=== PATIENT | female | born 1955 | race Caucasian/White ===

== ENCOUNTER 2023-10-26 15:21 | Outpatient (CLI) | payer MEDICARE, SELFPAY ==
--- NOTE | 2023-10-26 13:15 | DI.RAD_ITS ---
Exam(s) XR STANDING ALIGNMENT EXAM: XR STANDING ALIGNMENT CLINICAL HISTORY: RIGHT KNEE PAIN. TECHNIQUE: 2D digital imaging was performed. COMPARISON: No exams were available for comparison FINDINGS: 3 views Chondrocalcinosis in the medial and lateral compartments of both knees is evident and there is signif icant joint space narrowing of the medial compartment of the right knee with out significant narrowin g of the medial compartment of the left knee. Both lateral compartments exhibit preserved height. Hips unremarkable. Ankles unremarkable. No osseous lesions. IMPRESSION: Significant narrowing of the medial compartment of the right knee. Bilateral chondrocalcinosis. DATA REPOSITORY: RADIATION DOSE DELIVERED:
== END 2023-10-26 15:22 | disposition home or self-care (01) ==
LOC: DIORS 15:22
PROVIDERS: PCP Internal Medicine; Referring Provider Internal Medicine; Visit Provider Student in an Organized Health Care Education/Training Program
DX: M17.11 Unilateral primary osteoarthritis, right knee
CPT/HCPCS: 99203; 77073

== ENCOUNTER 2023-11-16 12:04 | Outpatient (CLI) | payer MEDICARE, SELFPAY ==
[2023-11-16 15:03] LABS: HCT 39.4 % (36.0-46.0); MCH 31.2 pg (27.0-33.0); MCV 95 fL (80-95); MPV 10.3 fL (8.0-11.0); Platelet Count 277 10^3/uL (130-400); RBC 4.17 10^6/uL (3.93-5.22); RDW-SD 44.9 fL; WBC 7.91 10^3/uL (4.4-10.8)
[2023-11-16 15:18] LABS: Anion Gap 7.7 mmol/L (3-11); BUN 22 mg/dL (7-18); CO2 28.3 mmol/L (21.0-32.0); CREATININE 0.9 mg/dL (0.55-1.02); Calcium 9.5 mg/dL (8.5-10.1); Chloride 106 mmol/L (98-107); Estimated GFR 69.64 (mL/min/1.73m2); Glucose 144 mg/dL (74-106); Potassium 4.5 mmol/L (3.5-5.1); Sodium 142 mmol/L (136-145)
== END 2023-11-16 12:05 | disposition home or self-care (01) ==
LOC: LBO 12:06
PROVIDERS: PCP Internal Medicine; Visit Provider Student in an Organized Health Care Education/Training Program
DX: M25.561 Pain in right knee (principal); M17.11 Unilateral primary osteoarthritis, right knee; Z01.818 Encounter for other preprocedural examination; Z01.812 Encounter for preprocedural laboratory examination
CPT/HCPCS: 36415; 80048; 85027

== ENCOUNTER 2023-12-02 09:57 | Day surgery (SDC) | payer MEDICARE, SELFPAY ==
[2023-12-02] VITALS (12 sets, daily range): BP systolic 127–204; BP diastolic 50–90; PULSE 72–90; RESP 10–18; TEMP 36.1–36.9; O2SAT 92–98; BMI 30.7
--- NOTE | 2023-12-02 07:30 | W.PM.DSUDISC ---
Date of service: 12/02/23 Time of Service: 07:30 Discharge Plan Disposition Patient Disposition: Home Condition: Good Discharge Details Reason For Visit: R TKR Attending Provider: Regulo Cabrera Primary Care Provider: Yokasta Allen Home Meds and New Rx's Prescriptions: New celecoxib 200 mg capsule 200 mg PO BID PRN (Reason: pain) Qty: 60 1RF aspirin 81 mg tablet,delayed release (DR/EC) 81 mg PO BID Qty: 60 0RF acetaminophen 500 mg tablet 1,000 mg PO Q8H PRN (Reason: pain) Qty: 90 3RF dexamethasone 4 mg tablet 4 mg PO DAILY Qty: 2 0RF Rx Instructions: Starting Post-Operative Day #1 (Day after surgery) Continued metformin 500 mg tablet 1,000 mg PO BID multivitamin Tablet 1 tab PO DAILY amitriptyline 25 mg tablet 25 mg PO QHS Rx Instructions: Pt reports taking up to 75mg QHS ascorbate calcium (vitamin C) 500 mg tablet 500 mg PO DAILY folic acid 1 mg tablet 1 mg PO DAILY cholecalciferol (vitamin D3) 25 mcg (1,000 unit) capsule 25 mcg PO DAILY Rx Instructions: with fish oil B12 5,000-100 mcg lozenge sublingual Patient Comments: 12/02/23 pt reports she has never taken thi docusate sodium [Colace] 100 mg capsule 100 mg PO BID Acidophilus Capsule 10 mg PO BID omega 1-jhe-sqk-fish oil [Fish Oil] 1,000 mg (120 mg-180 mg) capsule 1 cap PO DAILY Mounjaro 2.5 mg/0.5 mL pen injector 2.5 mg subcut QWEEK gabapentin 100 mg capsule 300 mg PO QID glimepiride 4 mg tablet 2 mg PO BID losartan 25 mg tablet 50 mg PO DAILY omeprazole 20 mg tablet,delayed release (DR/EC) 20 mg PO DAILY sertraline 100 mg tablet 100 mg PO DAILY sulfasalazine [Azulfidine] 500 mg tablet 1.5 g PO BID Rx Instructions: give with food (meal/snack) turmeric root extract 500 mg capsule 500 mg PO BID valacyclovir 1 gram tablet 1,000 mg PO Q8H Patient Comments: 12/02/23 pt not taking. used when she had shingles in April 2023. Changed oxycodone 10 mg tablet 10 mg PO Q4H PRNQty: 30 0RF Discharge Instructions Additional Instructions: Total Knee Discharge Instructions Activity: The most important activity is to walk and to work on gentle motion (both flexion and extension). You should try to take short walks a few times a day. It is important that when resting you work on keeping the knee straight. Avoid putting a pillow behind the knee as this will encourage flexion. Work on range of motion exercises as provided by Physical Therapy. - Start outpatient physical therapy within 2 weeks. - You should wear the ARON hose on both legs for 2 weeks. You may remove these at night. You may also use any compression sock in place of the ARON hose. - Utilize [employer] to review exercises, see videos on exercises and obtain basic information pertaining to your surgery and your recovery. Dressing: Remove the Sergio wrap by 2 days after your surgery and put on the ARON stocking given to you from the hospital. Keep the surgical dressing (underneath the SERGIO wrap) in place for at least one week. After the first week it may be removed and replaced with light gauze and tape or nothing. The wound and dressing may get wet after 3 days but avoid soaking the dressing or otherwise it will need to be changed. Many people prefer covering the dressing with cling wrap (saran wrap) to minimize it from getting soaked. If it gets wet, just pat dry. If it starts to peel off then it will need to be changed. Medications: - You should take Tylenol and anti-inflammatory Celebrex as your primary pain control medications. If the Celebrex is too expensive or not covered, please call the office for another alternative (Advil/Ibuprofen or Naproxen/Aleve) - You have been prescribed a stronger pain medication Oxycodone for breakthrough pain, take as needed as prescribed. - Youwill continue to take your Omeprazole to help reduce stomach acid and reflux. - You will continue your Gabapentin for nerve pain. - You will be taking Aspirin 81mg twice a day for DVT prevention unless instructed otherwise. - You have also been prescribed Decadron to take to control post-operative nausea and pain. You will start this tomorrow. - If you have constipation you should take Colace or Miralax (both [id number]). It takes most people 3-4 days to have a bowel movement. Follow-up: 2 weeks If you have any acute concerns or questions, please do not hesitate to contact the office at [phone]. You may contact Dr. Cabrera with any questions after hours through the hospital at [phone] or on his cell phone at [phone]. Stand Alone Forms: Anesthesia Discharge Inst., Abdelrahman.Nerve Block Instructions, Rachel Head ([facility]) Referrals: Regulo Cabrera MD [ [facility] STAFF PHYSICIAN] - 12/17/23 1:00 pm Equipment/Supplies: Walker Activity:: Activity as Tolerated Shower/Bathe:: 72 hours Diet:: As Tolerated Discharge Orders Discharge Orders: Discharge Order (Routine); Ordered 12/02/23 Ordered By: Regulo Cabrera
[2023-12-02] MEDS: Lactated Ringers 1,000 ML 80 ML IV (10:38)
--- NOTE | 2023-12-02 10:49 | ANES.PREOP_ITS ---
General Info Date of Service Date Performed: 12/02/23 Height: 4 ft 11 in Weight: 68.9 kg Body Mass Index (BMI): 30.7 Surgical Procedure: Operation Date: 12/02/23 12:25 Proposed Procedure Side Surgeon p Knee Total Arthroplasty, Cementless CR Right Regulo Cabrera MD Meds Allergies and Home Medications Allergies Allergy/AdvReac Type Severity Reaction Status Date / Time morphine Allergy Intermediate itchy Verified 12/02/23 10:34 Home Medication Medication Instructions Recorded Lactobacillus acidophilus 10 mg PO BID 07/02/22 (Acidophilus capsule) amitriptyline 25 mg tablet 25 mg PO QHS 07/02/22 ascorbate calcium (vitamin C) 500 500 mg PO DAILY 07/02/22 mg tablet cholecalciferol (vitamin D3) 25 25 mcg PO DAILY 07/02/22 mcg (1,000 unit) capsule cyanocobalamin (B12)-cobamamide surendra sublingual 07/02/22 5,000 mcg-100 mcg sublingual lozenge (B12) docusate sodium 100 mg capsule 100 mg PO BID 07/02/22 (Colace) folic acid 1 mg tablet 1 mg PO DAILY 07/02/22 metformin 500 mg tablet 1,000 mg PO BID 07/02/22 multivitamin 1 tab PO DAILY 07/02/22 gabapentin 100 mg capsule 300 mg PO QID 09/08/23 glimepiride 4 mg tablet 2 mg PO BID 09/08/23 losartan 25 mg tablet 50 mg PO DAILY 09/08/23 omeprazole 20 mg tablet,delayed 20 mg PO DAILY 09/08/23 release oxycodone 10 mg tablet 10 mg PO Q6H PRN 09/08/23 sertraline 100 mg tablet 100 mg PO DAILY 09/08/23 sulfasalazine 500 mg tablet 1.5 g PO BID 09/08/23 (Azulfidine) turmeric root extract 500 mg 500 mg PO BID 09/08/23 capsule valacyclovir 1 gram tablet 1,000 mg PO Q8H 09/08/23 omega 2-deo-ahr-fish oil 1,000 mg 1 cap PO DAILY 10/26/23 (120 mg-180 mg) capsule (Fish Oil) tirzepatide 2.5 mg/0.5 mL 2.5 mg subcut QWEEK 10/26/23 subcutaneous pen injector (Henrietta) Current Visit Medications: Current Medications Generic Name Dose Route Start Last Admin Trade Name Antonino PRN Reason Stop Dose Admin Acetaminophen 1,000 mg 12/02/23 06:00 Acetaminophen 500 Mg Tab PO 12/02/23 16:00 PREOP PAUL Acetaminophen 1,000 mg 12/02/23 07:28 Acetaminophen 500 Mg Tab PO 01/01/24 07:27 TID PRN PRN Analgesia Celecoxib 400 mg 12/02/23 06:00 Celecoxib 200 Mg Cap PO 12/02/23 16:00 PREOP PAUL Docusate Sodium 100 mg 12/02/23 07:28 Docusate Sodium 100 Mg Cap PO 01/01/24 07:27 BID PRN PRN Constipation Droperidol 0.625 mg 12/02/23 09:36 Droperidol 5 Mg/2 Ml Vial IVP 01/01/24 09:35 DIRECTED PRN Nausea Ephedrine Sulfate 0 mg 12/02/23 09:36 Ephedrine 25 Mg/5 Ml Syringe IVP 01/01/24 09:35 DIRECTED PRN Fentanyl 0 mcg 12/02/23 09:36 Fentanyl 100 Mcg/2 Ml Vial IVP 01/01/24 09:35 DIRECTED PRN Gabapentin 300 mg 12/02/23 06:00 Gabapentin 300 Mg Cap PO 12/02/23 16:00 PREOP [facility] Hydromorphone HCl 0 mg 12/02/23 09:36 Hydromorphone 2 Mg/Ml Syr IVP 01/01/24 09:35 DIRECTED PRN Tranexamic Acid 1,000 mg/ 60 mls @ 360 mls/hr 12/02/23 06:00 Sodium Chloride IVPB 12/02/23 16:00 PREOP [facility] Ringer's Solution 1,000 mls @ 80 mls/hr 12/02/23 06:00 12/02/23 10:38 IV 12/02/23 23:59 80 mls/hr INFUSION [facility] Administration Cefazolin Sodium/Dextrose 2 gm in 50 mls @ 100 mls/hr 12/02/23 06:00 Ancef Duplex IVPB 12/02/23 23:59 PREOP [facility] IV Miscellaneous Supplies 1 each 12/02/23 06:00 Iv Access IV 12/02/23 23:59 DIRECTED PAUL Naloxone HCl 0 mg 12/02/23 09:36 Naloxone 0.4 Mg/Ml Vial IVP 01/01/24 09:35 PRN PRN Ondansetron HCl 4 mg 12/02/23 07:28 Ondansetron 4 Mg/2 Ml Vial IVP 01/01/24 07:27 Q6H PRN PRN Nausea Oxycodone HCl 0 mg 12/02/23 07:28 Oxycodone 5 Mg Tab PO 01/01/24 07:27 Q3H PRN PRN Pain Polyethylene Glycol 17 gm 12/02/23 07:28 Polyethylene Glycol 3350 17 Gm Packet PO 01/01/24 07:27 BID PRN PRN Constipation Sodium Chloride 0 ml 12/02/23 06:00 Normal Saline Flush 10 Ml Syr IV 12/02/23 23:59 PRN PRN Sodium Chloride 0 ml 12/02/23 06:00 Normal Saline 10 Ml Vial IJ 12/02/23 23:59 DIRECTED PRN Sterile Water 0 ml 12/02/23 06:00 Water,Injection,Sterile 10 Ml Vial IJ 12/02/23 23:59 DIRECTED PRN PFSH Active Problems Active Problems: Problem Status Onset Code Osteoarthritis of right knee M17.11 Spinal stenosis of lumbar region M48.061 Sleep apnea G47.30 Obesity E66.9 Pain, foot M79.673 Nail dystrophy L60.3 Retinopathy H35.00 Type 2 diabetes mellitus without complications E11.9 Ulcerative colitis K51.90 Dyslipidemia E78.5 Hypertension I10 Fibromyalgia M79.7 Personal history of calcium pyrophosphate deposition disease (CPPD) Z87.39 Medical History Medical History Claustrophobia Chronic pain syndrome Medical History Comments:: 12/02/23: pt reports she felt nauseous/vomited post anesthesia a few years ago 12/02/23: pt has limited neck movement due to laminectomy in 08/03. BP repeat 192/88 at 10:40am Surgical History Surgical History Hx of tonsillectomy History of tubal ligation H/O laminectomy 02/2005 Status post excision of lipoma History of cataract surgery History of carpal tunnel release History of cystoscopy Tobacco Smoking/Tobacco Use Status: Never Alcohol Alcohol Intake: current Alcohol intake frequency: holidays/special occasions only Substance Use Substance use: Never Substance use type: does not use Details: 12/02/23: Pt reports she took THC drops one month ago for her fibromyalgia, Vital Signs and Lab Results Vital Signs Most Recent Vital Signs in EMR: Most Recent Vital Signs Temp Pulse Resp BP Pulse Ox 36.1 C L 90 18 204/75 H 98 12/02/23 10:03 12/02/23 10:03 12/02/23 10:03 12/02/23 10:03 12/02/23 10:03 Point of Care Results Point of Care Results: Finger Stick Blood Glucose 133 12/02/23 10:16 Lab Results Blood Type / Crossmatch: No Data to Display Complete Blood Count: White Blood Count 7.91 10^3/uL (4.4-10.8) 11/16/23 14:52 Red Blood Count 4.17 10^6/uL (3.93-5.22) 11/16/23 14:52 Hemoglobin 13.0 g/dL (11.2-15.7) 11/16/23 14:52 Hematocrit 39.4 % (36.0-46.0) 11/16/23 14:52 Platelet Count 277 10^3/uL (130-400) 11/16/23 14:52 Complete Metabolic Panel: Sodium 142 mmol/L (136-145) 11/16/23 14:52 Potassium 4.5 mmol/L (3.5-5.1) 11/16/23 14:52 Chloride 106 mmol/L (98-107) 11/16/23 14:52 Carbon Dioxide 28.3 mmol/L (21.0-32.0) 11/16/23 14:52 BUN 22 mg/dL (7-18) H 11/16/23 14:52 Creatinine 0.9 mg/dL (0.55-1.02) 11/16/23 14:52 Est GFR (CKD-EPI 2020) 69.64 (mL/min/1.73m2) 11/16/23 14:52 Calcium 9.5 mg/dL (8.5-10.1) 11/16/23 14:52 Glucose 144 mg/dL (74-106) H 11/16/23 14:52 Liver Function Panel: No Data to Display Coagulation Panel: No Data to Display Cardiac Panel: No Data to Display Arterial Blood Gas: No Data to Display Venous Blood Gas: No Data to Display Pancreas Panel: No Data to Display Thyroid Panel: No Data to Display Infectious Disease: No Data to Display Blood Cultures: No Data to Display Toxicology Panel: No Data to Display Anesthesia Assessment and Plan Anesthesia History Personal History: PONV Family History: No Family History of Anesthesia Complications Exercise Tolerance Exercise Tolerance: Metabolic Equivalents>4 Pertinent Negatives Pertinent Negatives: No Symptoms of GERD (Treated with RX) Cardiac & Pulmonary Exam Cardiac Exam: Normal S1/S2 Heart Sounds Pulmonary Exam: Seasonal Allergies Implantable Cardiac Device Does patient have a Pacemaker or an ICD?: No Airway Exam Known Difficult Airway: No Mallampati Class: 3 Mouth Opening: Narrow (< 3cm) Thyromental Distance: Less than 3 cm Neck Range of Motion: Limited ROM (neck fusion) Neck Circumference: Thick Teeth Condition: Normal Dentition ASA Classification ASA Score: ASA 3 Emergency Case?: No NPO Status NPO Status: NPO Clears >2 hours, Solids >8 hours Anesthesia Plan Resuscitation Status: Full Code Anesthesia Technique: Spinal Anesthesia Airway Planned: Natural Airway Monitors Used: Standard Monitors
[2023-12-02] MEDS: Acetaminophen 500 MG TAB 1000 MG PO (10:50)
[2023-12-02] MEDS: Gabapentin 300 MG CAP PO (10:50)
[2023-12-02] MEDS: Celecoxib 200 MG CAP 400 MG PO (10:51)
--- NOTE | 2023-12-02 11:25 | W.ANESNERVE ---
Nerve Block Single Injection Procedure Date and Time Date Performed: 12/02/23 Procedure Start: 11:15 Location Where Procedure Performed Procedure Location: Day Surgery Unit Reason Performed: Postoperative Analgesia Requesting Provider: Regulo Cabrera Timeout Performed Timeout Performed: Yes Monitoring Used ECG, Blood Pressure, SpO2, ETCO2 and See EMR for corresponding vital signs Sterility Sterility: Hand Hygiene, Surgical Cap, Surgical Mask, Sterile Gloves, Eye Protection and Chlorhexidine Sedation Given During Procedure Sedation Given (Indicate Dose Given): Versed IV Dose:: 3mg IVP Patient Mental Status Patient Mental Status: Sedate with meaningful communication Nerve Block 1st Nerve Block: Laterality: Right Block Type: Adductor Canal Ultrasound Image Saved?: Yes Needle / Catheter Used: 100mm SonoPlex II Local Anesthetic Bolus (Indicate Dose Given): Lidocaine used for local infiltration of skin, Injected in 3-5ml increments after negative blood aspiration and Ropivacaine 0.5% Dose:: 0.5%/20cc (100mg) Additives (Indicate Dose Given): Epinephrine to make 1:200,000 (5mcg/ml) Dose:: 100mcg/20cc (1:200,000) and Decadron Dose:: PF 10mg Ultrasound: Sterile probe cover and gel used Nerve Stimulator: Not Used Paresthesia: None Procedure Tolerated: No Complications and Patient tolerated well Procedure Outcome: Successful Performed By: James Gasca
[2023-12-02] MEDS: ceFAZolin 2 GM/50 ML BAG IVPB (11:37)
[2023-12-02] MEDS: fentaNYL 100 MCG/2 ML VIAL IVP ×2 (13:57→14:06)
[2023-12-02] MEDS: HYDROmorphone 2 MG/ML SYR IVP (14:15)
[2023-12-02] MEDS: Normal Saline 10 ML VIAL IJ (14:15)
--- NOTE | 2023-12-02 14:15 | ROE_ITS ---
Date of service: 12/02/23 Time of Service: 11:45 Operative Note Operative Note DATE OF PROCEDURE: 12/02/23 PRE-OP DIAGNOSIS: Right Knee Osteoarthritis POST-OP DIAGNOSIS: same PROCEDURE: Right Total Knee Replacement SURGEON: Regulo Cabrera LEASE ADMINISTRATOR: Evangelina Flowers ANESTHESIA TYPE: General LMA/ETT Refer to Anesthesia Record ESTIMATED BLOOD LOSS: 200 PATHOLOGY: none sent TOURNIQUET TIME: 0 COMPLICATIONS: None Patient was transported to: PACU Patient's condition: stable Implants: 1. Depuy Attune Cementless Cruciate Retaining Femoral Component, Size 5 2. Depuy Attune Cementless Fixed Bearing Tibial Component, Size 4 3. Depuy Attune 5x5 CR/FB Poly 4. Depuy Attune Patellar Component, Size 35 Indications: I have seen Lulu in clinic for symptoms of knee arthritis, confirmed with radiographic findings. She has exhausted nonoperative methods and was having significant limitations in daily function and desired better function and less pain. I discussed the technical details of a knee replacement. I explained the risks of the procedure to include, but not limited to, bleeding, infection, pain, stiffness, fracture, damage to nerves and vessels, damage to muscles and tendons, loosening, need for repeat procedure, blood clot and cardiopulmonary demise. Despite these risks, Lulu elected to proceed. Findings: There was significant signs of arthritis throughout the knee. Procedure Description: Lulu was greeted in the preoperative holding area where the correct side was identified and marked. The consent was reviewed with the patient and signed. The history and physical was updated. All questions were answered. Preoperative medications were administered: Acetaminophen 1000mg, Celebrex 400mg, and Gabapentin 300mg. An adductor canal block was then administered by the anesthesia team in the DSU. Lulu was taken back to the operating room. A spinal anesthestic was then attempted but unsuccessful and thus she was converted to a general anesthetic. The patient was placed into the supine position on the operating room table. A nonsterile tourniquet was placed high onto the leg but only used for cementing. Posts were placed for positioning during the procedure. All bony prominences were well padded. Prophylactic antibiotics in the form of Cefazolin were administered. 1g of Tranxemic Acid was given intravenously within 30 minutes of incision. The right leg was then prepped with Chloraprep and draped in a standard fashion with impervious stockinette. A second prep with Chloraprep was performed prior to application of Iodine impregnated skin protection. A timeout to confirm correct identity, side and site, procedure, allergies, anesthesia, and medical concerns was performed. With the knee in some flexion, a midline incision was made overlying the knee. Full thickness skin flaps were raised once the extensor mechanism was encountered. These were raised medially and laterally. Any bleeding was contro lled with electrocautery. Once the extensor mechanism was fully exposed, a medial parapatellar arthrotomy was performed in a flexed position. All bleeding from the arthrotomy and the geniculate arteries was coagulated. A medial subperiosteal peel was performed with electrocautery to the midcoronal plane. The fat pad was removed while keeping the patellar tendon protected. The anterior distal femur synovium was removed for later visualization. The ACL and PCL were resected and the anterior horn of the lateral meniscus was transected. The knee was then flexed with the patella everted. The patella was relatively quite wide with osteophytes. Using a step drill, and based on preoperative templating, the femoral canal was entered. This was done with a step drill without any difficulty. The intramedullary distal femoral cut guide was inserted, set to a 5 degree valgus cut and 9mm cut thickness. There was some hypoplasia of the lateral femoral condyle and any remnant cartilage of the medial femoral condyle was removed for appropriate thickness. The distal femoral cut guide was then held in position and pinned. With the soft tissues protected, the distal cut was performed. This was passed over a few times to ensure a planar cut. I then turned attention to the tibia. The extramedullary guide was placed onto the leg. The distal aspect was slid medial to adjust for position of center of ankle and stay in line with shaft of the tibia. Approximately 3-5 degrees of posterior slope was kept in the proximal cutting guide. The center of the guide was aligned with the PCL. The stylus was used to assess cut thickness. The medial side, most involved side, was set for a 6mm cut, corresponding to 9mm laterally. This was then held in position and pinned into place with 2 additional pins and a cross pin for stability. The medial and lateral collateral ligaments were protected and the cut was performed. With this completed, it was assessed and noted to be of appr opriate dimensions. The guide was removed. A spacer block was inserted and the knee was brought into extension. The 5mm spacer block provided full extension, without hyperextension and with stability of both the medial and lateral collateral ligaments was assessed. The pins from the femur and the tibia were then removed. The distal femur was then sized. The anterior stylus was placed onto the lateral ridge of the anterior femur. This indicated a size 5 femur. The external rotation of the guide was adjusted to 3 degrees to match the epicondylar axis, perpendicular to [place]?s line. The 4-in-1 cutting guide was the placed. The posterior medial femur cut was evaluated and appeared of good thickness. The spacer block was inserted underneath the cutting guide and stability was confirmed in 90 degrees of flexion. An dale wing was used to confirm appropriate position of the anterior cut to avoid notching. This cutting guide was ensured to be flush on the cut surface and then pinned into place with headed pins. While protecting the soft tissues, quad tendon, and collateral ligaments, the anterior and posterior cuts were performed with a saw. The central two pins were removed and the posterior and anterior chamfers were cut next. The notch-cutting guide was placed. This was pinned to lateralize the femoral component as much as possible while keeping it flush on the cut surface. This was then pinned into position. A reciprocating saw was used to make the notch cut. A rasp smoothed the cut surfaces. The medial and lateral menisci were removed. A trial femoral component was then inserted, impacted down to the cut surfaces, and the lug holes were drilled. A provisional trial tibial component was placed and the knee was brought through range of motion. There was noted to be excellent extension and flexion. There was no significant instability. The patella was tracking without thumbs. A size 5mm polyethylene component provided the best range of motion and stability with less than 2mm gapping with medial and lateral stress and full extension without significant hyperextension. The tibial cut surface was fully exposed. The tibia was then sized as a 4. The tibia had been previously marked during trialing to correspond to the center of the tibial component to help with rotation. The trial was aligned to this evangelina, approximately rotated to the medial 1/3rd of the tibial tubercle. The trial was pinned into place. The tibia was prepared with a reamer and a keel punch and lug holes. The knee was then brought into extension and the patella was measured as 25mm. Using the patellar clamp and cut guide, this was resected to a flat surface with at least 13mm of thickness remaining. The size 35 patella fit the best. This was oriented and then clamped into position. The lugs were drilled. The trial components were removed. The final components were opened on the back table. The periosteal and capsular tissues, especially posteriorly, around the knee were then systematically injected with a periarticular cocktail consisting of 246mg of Ropivacaine, 0.5mg of Epinephrine, 0.08mg of Clonidine, and 30mg of Ketorolac, diluted to 100cc. On the back table, with the implants opened, the cement was mixed. One batch of high viscosity cement was prepared with vacuum assistance. After the cement was ready a small amount was placed on the cut surface of the patella and the patellar button was clamped into position and held. While the cement was hardening, the cementless knee components were placed. Starting with the tibial component, the tibia was subluxed anteriorly and the lug holes of the component were lined up. The tibia was then impacted with an impactor and mallet until the tibial component was in contact with the tibia. The final polyethylene component was inserted. Then, the femoral component was inserted. The lug holes were aligned and the component was impacted into position. The knee was irrigated with Irrisept Chlorhexadine solution. This was allowed to sit in the knee for 3 minutes and then it was irrigated out with saline. After the cement had finally cured, approximately 15min, the clamp was removed from the patella and the knee was taken through range of motion. The patella was tracking with a no-thumbs technique. The capsule was then reapproximated with a No. 1 Vicryl at multiple locations. The capsule was finally closed with a No. 2 Stratafix, barbed suture. The second dosing of 1g TXA was started. Deep tissues were then reapproximated with 0 Vicryl and 2-0 Vicryl. The skin was closed with a running 3-0 Monocryl in a subcuticular fashion. This was reinforced with skin glue. A Mepilex silver dressing was applied along with a gyxq-br-sowpr NIDHI wrap. A CryoCuff was applied. Lulu was transferred to the hospital bed without difficulty an suffering no apparent complication. She has a good prognosis although with concerns about pain control given her baseline usage of Oxycodone 10mg. Physical therapy will start today and without restrictions, weight-bearing as tolerated. Aspirin 81mg BID will be used for DVT prophylaxis.
--- NOTE | 2023-12-02 15:19 | W.ANESPOSTOP ---
Postoperative Evaluation Date, Time and Location Date Performed: 12/02/23 Time Performed: 15:19 Patient Location: Day Surgery Unit Vital Signs Most Recent Imported Vital Signs: Most Recent Vital Signs Temp Pulse Resp BP Pulse Ox 36.2 C L 77 18 138/62 94 12/02/23 15:00 12/02/23 15:00 12/02/23 15:00 12/02/23 15:00 12/02/23 15:00 Pain Score Most Recent Pain Score: Most Recent Pain Score Pain Level 6 12/02/23 15:00 Assessment Mental Status: Awake (Alert & Oriented to Patient Baseline) Airway and Respiratory Function: Patent airway with normal (patient baseline) respiratory exam Cardiovascular Function: Hemodynamically Stable Hydration Status: Adequately Hydrated Nausea & Vomiting: No Nausea or Vomiting Pain: Pain is tolerable per patient Peripheral Nerve Block: Regional nerve block not resolved at time of post operative discharge
--- NOTE | 2023-12-02 15:46 | IN_ITS ---
PT Notes Visit Reasons: R TKR Physical Therapy Day Surgery Initial Evaluation Date: 12/02/2023 Referring Doctor: GABRIEL Javed PT Orders: PT CONSULT: S/P Ortho Surgery Precautions: WBAT on the R LE with AD. Patient Profile/Admitting Diagnosis: Patient is a 68-year-old female patient with degenerative joint disease of the R knee and is S/P R total knee arthroplasty on postoperative day 0. PMHX: Medical History (Updated 10/26/23 @ 13:40 by GABRIEL Javed) Claustrophobia Chronic pain syndrome Surgical History (Updated 09/08/23 @ 09:09 by Yelena Pichardo RN) Hx of tonsillectomy History of tubal ligation H/O laminectomy 02/2005 Status post excision of lipoma History of cataract surgery History of carpal tunnel release History of cystoscopy Social History/Home Situation: Lives with in a private home, has 15 steps to the second floor of the house where the bedroom is. Independent with all aspects of ADLs prior to surgery although has had increasing difficulty with walking due to arthritic progression. Equipment Owned/DME: [facility] Subjective: Reported 6/10 that went down to 5/10 during walking. Denied headache, chest pain, and lightheadedness throughout session Objective: General Observation: Resting on bedside chair with leg up, appearing uncomfortable. Rodrick present throughout evaluation. Mental Status: A and O x 4 Pain: As above ROM: Right Lower Extremity: Hip flexion WFL. Hip abduction WFL. Knee flexion 30 degrees to 90 degrees with discomfort at end of range. Knee extension -30 degrees. Ankle dorsiflexion WFL. Ankle plantarflexion WFL. Left Lower Extremity: Hip flexion WFL. Hip abduction WFL. Knee flexion WFL. A nkle dorsiflexion WFL. Ankle plantarflexion WFL. Strength: Right Lower Extremity: Hip flexors 4-/5. Hip abductors 4-/5. Knee flexors 3-/5. Knee extensors 3-/5. Ankle dorsiflexors 4-/5. Ankle plantarflexors 4-/5. Left Lower Extremity:Hip flexors 4/5. Hip abductors 4/5. Knee flexors 5/5. Knee extensors 5/5. Ankle dorsiflexors 4/5. Ankle plantarflexors 545. Sensation: Intact as to pain and light pressure in B LE Bed Mobility/Transfers: Minimal cueing provided for use of B hands as needed for support, movement sequence, AD management, and posture to reduce fall risk and minimize pain report Sit to stand contact guard assist with FWW Stand to sit stand by assist with FWW Bed to chair stand by assist with FWW follow-up thank you thank Gait: Facilitated safe and correct performance of level surface ambulation using front-wheeled walker with step-to gait pattern needing stand by assist and minimal verbal cueing for AD management, decreased out-toeing on the R (patient states that her gait has been like that), and posture to reduce fall risk and minimize pain report. Pain report decreased to 4-5/10 with activity. Stairs: Guided patient with safe and correct negotiation of 6 x 4-inch steps and 4 x - inch steps while holding onto B rails with step-to gait pattern with minimal verbal cueing provided for increased knee flexion on the right during each ascent, hand placement, movement sequence, and posture to reduce fall risk and minimize pain report. Balance: Static Sitting: Normal Dynamic Sitting: Normal Static Standing: Fair Dynamic Standing: Fair Special Tests: Mobility Limitations Standardized Measure [facility] AM-P[facility] 6 clicks Basic Mobility Inpatient Short Form: Raw Score: 22 CMS Score: 21% deficit Informed Consent/Education: Patient was instructed in purpose of PT consult. Packet containing TKA exercise protocol has been given to patient. Education and training on initial set of exercises that can be done at home have been completed with patient. Trained patient with correct performance of exercises below to maximize motor control, joint flexibility, soft tissue extensibility of the R knee musculature: Access Code: [email or web address] URL: [email or web address] Date: 11/12/2023 Prepared by: Kelly Majano Exercises - Supine Quad Set - 1 x daily - 7 x weekly - 1 sets - 10 reps - 5 hold - Supine Heel Slide - 1 x daily - 7 x weekly - 1 sets - 10 reps - 5 hold - Supine Ankle Pumps - 1 x daily - 7 x weekly - 1 sets - 10 reps - 5 hold - Small Range Straight Leg Raise - 1 x daily - 7 x weekly - 1 sets - 10 reps - 5 hold - Seated March - 1 x daily - 7 x weekly - 1 sets - 10 reps - 5 hold Assessment: Patient requires the use of a youth-sized front-wheeled walker for mobility ADL performance to maximize independence and reduce fall risk. Patient presents with clinical signs and symptoms consistent with current/admitting diagnoses that have resulted to mobility limitations, gait instability, generalized weakness, and impairment of motor control as demonstrated by the following impairment level findings: 1. Decreased strength to R knee major muscle groups 2. Impaired standing balance 3. Limitation of joint range of motion in R knee Impairments are contributing to the following functional limitations: 1. Inability to safely ambulate without assistive device 2. Increase completion time for mobility ADL performance 3. Increased fall risk Patient is assessed as a 14994 moderate complexity based on the following: History: 68-year-old female with impairment level findings, functional limitations, and past medical history as indicated above Examination: Demonstrable impairment in strength, balance, and mobility level with underlying impairments and functional limitations as documented above Presentation: Evolving Decision Makin moderate complexity Goals: N/A. PT evaluation and 1-2 treatment sessions only for functional mobility training using recommended AD and for HEP instruction. Plan of Care/Treatment Plan: N/A. PT evaluation and 1-2 treatment session only for functional mobility training using recommended AD and for HEP instruction. DISCHARGE RECOMMENDATIONS: Home when medically cleared by orthopedic surgeon. Recommend outpatient PT services in order to optimize functional mobility outcomes and facilitate return to independent community ambulation without an assistive device. TREATMENT CODE/TIME: 9716 2 x 20 minutes for 1 unit, 9753 0 x 21 minutes for 1 unit (15:46-16:27) Thank you for the opportunity to participate in the care of this patient. Please sign an return this page within 30 days if you agree with the above POC. Thank you! Physician Signature Date [facility] Thank you for the opportunity to participate in the care of this patient. Kelly Majano PT, DPT, CLT [facility] [place], [place]
== END 2023-12-02 16:54 | disposition home or self-care (01) ==
LOC: SUR 09:57
PROVIDERS: PCP Internal Medicine; Visit Provider Student in an Organized Health Care Education/Training Program
PROC: (CPT 27447; principal; 2023-12-02 12:15)
DX: M17.11 Unilateral primary osteoarthritis, right knee (principal); E11.9 Type 2 diabetes mellitus without complications; I10 Essential (primary) hypertension; E78.5 Hyperlipidemia, unspecified
CPT/HCPCS: 27447; C1776; 97162; 97530; J0171; J0690; J1100; J1170; J2001; J2250; J2401; J2405; J2704; J3010

== ENCOUNTER 2023-12-17 14:52 | Outpatient (CLI) | payer MEDICARE, SELFPAY ==
--- NOTE | 2023-12-17 13:00 | DI.RAD_ITS ---
Exam(s) XR KNEE RT 1V EXAM: XR KNEE RT 1V INDICATION: f/u R TKA. COMPARISON: CR XR STANDING ALIGNMENT from 10/26/2023 CR XR STANDING ALIGNMENT from 12/17/2023 TECHNIQUE: 2D digital imaging was performed. Lateral view FINDINGS: A right total knee prosthesis has been placed since the prior exam. There are no abnormal surroundin g bony lucencies. The alignment appears satisfactory. DATA REPOSITORY: RADIATION DOSE DELIVERED:
--- NOTE | 2023-12-17 13:00 | DI.RAD_ITS ---
Exam(s) XR STANDING ALIGNMENT EXAM: XR STANDING ALIGNMENT CLINICAL HISTORY: f/u R TKA. TECHNIQUE: 2D digital imaging was performed. Standing AP views were performed from the pelvis throu gh the ankles. COMPARISON: CR XR KNEE COMPLETE MIN 4V RT from 08/17/2023 CR XR STANDING ALIGNMENT from 10/26/2023 FINDINGS: BONES: No acute fracture is present. No bony destructive lesion is seen. Leg length discrepancy: The left femoral head projects proximally 5 millimeter superior to the righ t. JOINTS: Knees: Unremarkable right total knee prosthesis. Left knee joint spaces are maintained. C hondrocalcinosis present. Ankles: [id number] degenerative changes. The hip joints spaces are maintained. There is acetabular spurring. SOFT TISSUE: Vascular calcifications and proximal hamstring muscle tendon calcification. IMPRESSION: Right total knee prosthesis. Mild leg length discrepancy. DATA REPOSITORY: RADIATION DOSE DELIVERED:
== END 2023-12-17 14:53 | disposition home or self-care (01) ==
LOC: DIORS 14:52
PROVIDERS: PCP Internal Medicine; Referring Provider Internal Medicine; Visit Provider Student in an Organized Health Care Education/Training Program
DX: Z96.651 Presence of right artificial knee joint (principal); Z47.1 Aftercare following joint replacement surgery
CPT/HCPCS: 73560; 77073

== ENCOUNTER → 2024-01-14 13:24 | Outpatient (BNVA) | payer MEDICARE, SELFPAY | PROVIDERS: PCP Internal Medicine; Referring Provider Internal Medicine; Visit Provider Student in an Organized Health Care Education/Training Program | DX: Z47.1 Aftercare following joint replacement surgery (principal); Z96.651 Presence of right artificial knee joint ==

== ENCOUNTER → 2024-02-25 14:09 | Outpatient (BNVA) | payer MEDICARE, SELFPAY | PROVIDERS: PCP Internal Medicine; Referring Provider Internal Medicine; Visit Provider Student in an Organized Health Care Education/Training Program | DX: Z47.1 Aftercare following joint replacement surgery (principal); T84.82XD Fibrosis due to internal orthopedic prosthetic devices, implants and grafts, subsequent encounter; Z96.651 Presence of right artificial knee joint ==

== ENCOUNTER 2024-03-02 12:10 | Day surgery (SDC) | payer MEDICARE, SELFPAY ==
--- NOTE | 2024-03-02 12:28 | PDOC.DSDIS_ITS ---
Date of service: 03/02/24 Time of Service: 12:29 Discharge Plan Disposition Patient Disposition: Home Condition: Good Discharge Details Reason For Visit: Edgardo Salinas TKR Attending Provider: Regulo Cabrera Primary Care Provider: Yokasta Allen Home Meds and New Rx's Prescriptions: New oxycodone 15 mg tablet 15 mg PO Q4H PRNQty: 30 0RF Continued metformin 500 mg tablet 1,000 mg PO BID multivitamin Tablet 1 tab PO DAILY amitriptyline 25 mg tablet 25 mg PO QHS Rx Instructions: Pt reports taking up to 75mg QHS ascorbate calcium (vitamin C) 500 mg tablet 500 mg PO DAILY folic acid 1 mg tablet 1 mg PO DAILY cholecalciferol (vitamin D3) 25 mcg (1,000 unit) capsule 25 mcg PO DAILY Rx Instructions: with fish oil B12 5,000-100 mcg lozenge sublingual Patient Comments: 12/02/23 pt reports she has never taken thi docusate sodium [Colace] 100 mg capsule 100 mg PO BID Acidophilus Capsule 10 mg PO BID omega 1-piw-xfv-fish oil [Fish Oil] 1,000 mg (120 mg-180 mg) capsule 1 cap PO DAILY Mounjaro 2.5 mg/0.5 mL pen injector 2.5 mg subcut QWEEK duloxetine 20 mg capsule,delayed release(DR/EC) 20 mg PO BID gabapentin 100 mg capsule 300 mg PO QID glimepiride 4 mg tablet 2 mg PO BID losartan 25 mg tablet 50 mg PO DAILY omeprazole 20 mg tablet,delayed release (DR/EC) 20 mg PO DAILY sulfasalazine [Azulfidine] 500 mg tablet 1.5 g PO BID Rx Instructions: give with food (meal/snack) turmeric root extract 500 mg capsule 500 mg PO BID valacyclovir 1 gram tablet 1,000 mg PO Q8H Patient Comments: 12/02/23 pt not taking. used when she had shingles in April 2023. celecoxib 200 mg capsule 200 mg PO BID PRN (Reason: pain) Qty: 60 1RF acetaminophen 500 mg tablet 1,000 mg PO Q8H PRN (Reason: pain) Qty: 90 3RF Discontinued oxycodone 10 mg tablet 10 mg PO Q4H MDD 6 tabs PRN (Reason: severe pain) Qty: 30 0RF Discharge Instructions Additional Instructions: Knee Manipulation Discharge Instructions Activity: You should begin moving as soon as possible. You may work on flexion but also equally maintain extension. You may bear weight as tolerated, using crutches only for support/comfort. You should apply ice to help with swelling and elevate when possible (especially in the first few days). Dressings: The knee dressing may come down after 48 hours. You may shower and get the wound wet at that time. You should keep the wounds covered with a bandaid until follow-up. Medications: - Rarely does this require any stronger pain medications however I will call you in Oxycodone 15mg to help treat pain. - Recommend to take up to 1000mg of Acetaminophen (Tylenol) and 200mg of Celecoxib every 12 hours as needed. These larger strength tablets were called in but you also may use [id number]. Follow-up: 7-10 days Referrals: Regulo Cabrera MD [ [facility] STAFF PHYSICIAN] - Equipment/Supplies: Partial Weight Bearing Crutches Activity:: Activity as Tolerated Shower/Bathe:: 48 hours Diet:: As Tolerated Discharge Orders Discharge Orders: Discharge Order (Routine); Ordered 03/02/24 Ordered By: Manuel Flowers DS: Diagnosis Discharge Diagnosis (1) Arthrofibrosis of total knee arthroplasty: Status: Acute
[2024-03-02 12:41] VITALS: BP 140/73; PULSE 88; RESP 16; TEMP 36.4; O2SAT 95
[2024-03-02] MEDS: Lactated Ringers 1,000 ML 80 ML IV (13:15)
[2024-03-02] MEDS: Celecoxib 200 MG CAP 400 MG PO (13:15)
[2024-03-02] MEDS: Gabapentin 300 MG CAP PO (13:15)
--- NOTE | 2024-03-02 13:30 | W.ANESPRE ---
General Info Date of Service Date Performed: 03/02/24 Height: 4 ft 11 in Weight: 65.771 kg Body Mass Index (BMI): 29.2 Surgical Procedure: Operation Date: 03/02/24 15:25 Proposed Procedure Side Surgeon p Knee Manipulation of Knee Right Regulo Cabrera MD Meds Allergies and Home Medications Allergies Allergy/AdvReac Type Severity Reaction Status Date / Time morphine Allergy Intermediate itchy Verified 03/02/24 12:46 Home Medication Medication Instructions Recorded Lactobacillus acidophilus 10 mg PO BID 07/02/22 (Acidophilus capsule) amitriptyline 25 mg tablet 25 mg PO QHS 07/02/22 ascorbate calcium (vitamin C) 500 500 mg PO DAILY 07/02/22 mg tablet cholecalciferol (vitamin D3) 25 25 mcg PO DAILY 07/02/22 mcg (1,000 unit) capsule cyanocobalamin (B12)-cobamamide surendra sublingual 07/02/22 5,000 mcg-100 mcg sublingual lozenge (B12) docusate sodium 100 mg capsule 100 mg PO BID 07/02/22 (Colace) folic acid 1 mg tablet 1 mg PO DAILY 07/02/22 metformin 500 mg tablet 1,000 mg PO BID 07/02/22 multivitamin 1 tab PO DAILY 07/02/22 gabapentin 100 mg capsule 300 mg PO QID 09/08/23 glimepiride 4 mg tablet 2 mg PO BID 09/08/23 losartan 25 mg tablet 50 mg PO DAILY 09/08/23 omeprazole 20 mg tablet,delayed 20 mg PO DAILY 09/08/23 release sulfasalazine 500 mg tablet 1.5 g PO BID 09/08/23 (Azulfidine) turmeric root extract 500 mg 500 mg PO BID 09/08/23 capsule valacyclovir 1 gram tablet 1,000 mg PO Q8H 09/08/23 omega 3-jtr-uzi-fish oil 1,000 mg 1 cap PO DAILY 10/26/23 (120 mg-180 mg) capsule (Fish Oil) tirzepatide 2.5 mg/0.5 mL 2.5 mg subcut QWEEK 10/26/23 subcutaneous pen injector (Mounjaro) acetaminophen 500 mg tablet 1,000 mg (2 x 500 mg) PO Q8H PRN 12/02/23 pain #90 tabs celecoxib 200 mg capsule 200 mg PO BID PRN pain #60 caps 12/02/23 oxycodone 10 mg tablet 10 mg PO Q4H PRN severe pain #30 12/10/23 tabs duloxetine 20 mg capsule,delayed 20 mg PO BID 02/25/24 release Current Visit Medications: Current Medications Generic Name Dose Route Start Last Admin Trade Name Antonino PRN Reason Stop Dose Admin Acetaminophen 650 mg 03/02/24 12:26 Acetaminophen 325 Mg Tab PO 04/01/24 12:25 Q4H PRN PRN Celecoxib 400 mg 03/02/24 06:00 03/02/24 13:15 Celecoxib 200 Mg Cap PO 03/02/24 23:59 400 mg PREOP PAUL Administration Gabapentin 300 mg 03/02/24 06:00 03/02/24 13:15 Gabapentin 300 Mg Cap PO 03/02/24 23:59 300 mg PREOP PAUL Administration Ringer's Solution 1,000 mls @ 80 mls/hr 03/02/24 06:00 03/02/24 13:15 IV 03/02/24 23:59 80 mls/hr INFUSION PAUL Administration IV Miscellaneous Supplies 1 each 03/02/24 06:00 Iv Access IV 03/02/24 23:59 DIRECTED PAUL Sodium Chloride 0 ml 03/02/24 06:00 Normal Saline Flush 10 Ml Syr IV 03/02/24 23:59 PRN PRN Sodium Chloride 0 ml 03/02/24 06:00 Normal Saline 10 Ml Vial IJ 03/02/24 23:59 DIRECTED PRN Sterile Water 0 ml 03/02/24 06:00 Water,Injection,Sterile 10 Ml Vial IJ 03/02/24 23:59 DIRECTED PRN PFSH Active Problems Active Problems: Problem Status Onset Code Arthrofibrosis of total knee arthroplasty T84.82XA History of total right knee replacement 12/02/23 Z96.651 Spinal stenosis of lumbar region M48.061 Sleep apnea G47.30 Obesity E66.9 Pain, foot M79.673 Nail dystrophy L60.3 Retinopathy H35.00 Type 2 diabetes mellitus without complications E11.9 Ulcerative colitis K51.90 Dyslipidemia E78.5 Hypertension I10 Fibromyalgia M79.7 Personal history of calcium pyrophosphate deposition disease (CPPD) Z87.39 Medical History Medical History Claustrophobia Chronic pain syndrome Medical History Comments:: 12/02/23: pt reports she felt nauseous/vomited post anesthesia a few years ago 12/02/23: pt has limited neck movement due to laminectomy in 08/03. BP repeat 192/88 at 10:40am Surgical History Surgical History Hx of tonsillectomy History of tubal ligation H/O laminectomy 02/2005 Status post excision of lipoma History of cataract surgery History of carpal tunnel release History of cystoscopy Tobacco Smoking/Tobacco Use Status: Never Alcohol Alcohol Intake: current Alcohol intake frequency: holidays/special occasions only Substance Use Substance use: Never Substance use type: does not use Vital Signs and Lab Results Vital Signs Most Recent Vital Signs in EMR: Most Recent Vital Signs Temp Pulse Resp BP Pulse Ox 36.4 C L 88 16 140/73 95 03/02/24 12:41 03/02/24 12:41 03/02/24 12:41 03/02/24 12:41 03/02/24 12:41 Point of Care Results Point of Care Results: Finger Stick Blood Glucose 189 03/02/24 12:48 Lab Results Blood Type / Crossmatch: No Data to Display Complete Blood Count: No Data to Display Complete Metabolic Panel: No Data to Display Liver Function Panel: No Data to Display Coagulation Panel: No Data to Display Cardiac Panel: No Data to Display Arterial Blood Gas: No Data to Display Venous Blood Gas: No Data to Display Pancreas Panel: No Data to Display Thyroid Panel: No Data to Display Infectious Disease: No Data to Display Blood Cultures: No Data to Display Toxicology Panel: No Data to Display Anesthesia Assessment and Plan Anesthesia History Personal History: No History of Anesthesia Complications Family History: No Family History of Anesthesia Complications Exercise Tolerance Exercise Tolerance: Metabolic Equivalents>4 Pertinent Negatives Pertinent Negatives: No Symptoms of GERD Cardiac & Pulmonary Exam Cardiac Exam: Normal S1/S2 Heart Sounds Pulmonary Exam: Clear Bilateral Breath Sounds Implantable Cardiac Device Does patient have a Pacemaker or an ICD?: No Airway Exam Known Difficult Airway: No Mallampati Class: 3 Mouth Opening: Narrow (< 3cm) Thyromental Distance: Less than 3 cm Neck Range of Motion: Limited ROM (neck fusion) and History of Cervical Fusion Neck Circumference: Thick Teeth Condition: Normal Dentition ASA Classification ASA Score: ASA 3 Emergency Case?: No NPO Status NPO Status: NPO Clears >2 hours, Solids >8 hours Anesthesia Plan Resuscitation Status: Full Code Anesthesia Technique: General Anesthesia Airway Planned: Natural Airway Monitors Used: Standard Monitors
[2024-03-02 13:31] VITALS: BMI 29.2
--- NOTE | 2024-03-02 13:58 | ROE_ITS ---
Date of service: 03/02/24 Time of Service: 13:58 Operative Note Operative Note DATE OF PROCEDURE: 03/02/24 PRE-OP DIAGNOSIS: Right Knee Arthrofibrosis s/p Replacement POST-OP DIAGNOSIS: same PROCEDURE: Right Knee Manipulation Under Anesthesia SURGEON: Regulo Cabrera ANESTHESIA TYPE: General:No Airway Refer to Anesthesia Record ESTIMATED BLOOD LOSS: 0 PATHOLOGY: none sent TOURNIQUET TIME: 0 COMPLICATIONS: None Patient was transported to: PACU Patient's condition: stable Indications: Lorenza is a 68 year old female who is s/p knee replacement. Despite diligent work with physical therapy there has been continued stiffness. To assist with mobility, I offered a manipulation under anesthesia. I discussed the risks of the procedure to include bleeding, pain, recurrent stiffness, fracture. Despite these risks, she elects to proceed. Findings: Preoperative flexion = 100 Postoperative flexion = 130 Preoperative extension = 0 Postoperative extension = 0 Procedure Description: The patient was greeted in the preoperative holding area. Identity was confirmed and the correct side was identified and marked. The consent was reviewed the patient and signed. History and physical was updated. Lorenza was taken back to the operating room. The right side was identified as the correct side. A timeout was performed for safe surgery. A general anesthetic was administered. The knee was then prepped with ChloraPrep and an intra-articular injection of 10 cc of 0.5% bupivacaine was administered. Once a muscle relaxant was fully on board manipulation was performed. Pre- manipulation range of motion was noted. A gentle manipulation was performed first into flexion using a very small lever arm and adding gentle and progressive pressure to the tibia. There is audible and palpable crepitus with improvement in range of motion. This was cycled and repeated multiple times. The leg was then brought into extension and gentle anterior posterior pressure was applied with a supported hand behind the proximal tibia and knee. This was brought back into flexion was once again manipulated with gentle and progressive pressure. Final range of motion numbers were recorded. A Band-Aid was applied to the injection site. She was awakened from anesthesia and taken to the PACU in stable condition.
[2024-03-02] MEDS: Bupivacaine 0.25% Pres-Free 30 ML VIAL (14:02)
[2024-03-02 14:05] VITALS: BP 151/59; PULSE 75; RESP 14; TEMP 36.5; O2SAT 93
[2024-03-02 14:15] VITALS: BP 151/64; PULSE 75; RESP 14; TEMP 36.5; O2SAT 94
--- NOTE | 2024-03-02 14:21 | W.ANESPOSTOP ---
Postoperative Evaluation Date, Time and Location Date Performed: 03/02/24 Time Performed: 14:21 Patient Location: Day Surgery Unit Vital Signs Most Recent Imported Vital Signs: Most Recent Vital Signs Temp Pulse Resp BP Pulse Ox 36.5 C 75 14 151/64 H 94 03/02/24 14:15 03/02/24 14:15 03/02/24 14:15 03/02/24 14:15 03/02/24 14:15 Pain Score Most Recent Pain Score: Most Recent Pain Score Pain Level 0 03/02/24 14:15 Assessment Mental Status: Awake (Alert & Oriented to Patient Baseline) Airway and Respiratory Function: Patent airway with normal (patient baseline) respiratory exam Cardiovascular Function: Hemodynamically Stable Hydration Status: Adequately Hydrated Nausea & Vomiting: No Nausea or Vomiting Pain: Pt. Denies Any Pain Peripheral Nerve Block: Patient did not receive a nerve block
[2024-03-02 14:50] VITALS: BP 159/53; PULSE 80; RESP 16; TEMP 36.5; O2SAT 96
== END 2024-03-02 15:05 | disposition home or self-care (01) ==
PROVIDERS: PCP Internal Medicine; Visit Provider Student in an Organized Health Care Education/Training Program
PROC: (CPT 27570; principal; 2024-03-02 15:15)
DX: T84.82XA Fibrosis due to internal orthopedic prosthetic devices, implants and grafts, initial encounter (principal); Z96.651 Presence of right artificial knee joint; M48.061 Spinal stenosis, lumbar region without neurogenic claudication; M79.7 Fibromyalgia; I10 Essential (primary) hypertension; E78.5 Hyperlipidemia, unspecified; E11.9 Type 2 diabetes mellitus without complications; Z79.84 Long term (current) use of oral hypoglycemic drugs
CPT/HCPCS: 27570; J0330; J0665; J2001; J2405; J2704

== ENCOUNTER → 2024-03-14 14:04 | Outpatient (BNVA) | payer MEDICARE, SELFPAY | PROVIDERS: PCP Internal Medicine; Referring Provider Internal Medicine | DX: Z47.1 Aftercare following joint replacement surgery (principal); T84.82XD Fibrosis due to internal orthopedic prosthetic devices, implants and grafts, subsequent encounter; Z96.651 Presence of right artificial knee joint ==

== ENCOUNTER → 2024-04-25 14:00 | Outpatient (BNVA) | payer MEDICARE, SELFPAY | PROVIDERS: PCP Internal Medicine; Referring Provider Internal Medicine; Visit Provider Student in an Organized Health Care Education/Training Program | DX: Z47.1 Aftercare following joint replacement surgery (principal); Z96.651 Presence of right artificial knee joint; T84.82XA Fibrosis due to internal orthopedic prosthetic devices, implants and grafts, initial encounter ==

== ENCOUNTER 2024-12-22 15:46 | Outpatient (CLI) | payer MEDICARE, SELFPAY ==
--- NOTE | 2024-12-22 13:45 | DI.RAD_ITS ---
Exam(s) XR KNEE RT 2V AP,LAT EXAM: XR KNEE RT 2V AP,LAT CLINICAL HISTORY: ANNUAL F/U R TKA. TECHNIQUE: 2D digital imaging was performed. COMPARISON: CR XR KNEE RT 1V from 12/17/2023 FINDINGS: Views-AP and lateral On the present weight-bearing images there is no evidence fracture nor obvious loosening of the prost hesis. No radiographic evidence of osteomyelitis. Small amount of increased joint fluid is noted. Vascular calcifications noted in the popliteal and femoral arteries, indicating atherosclerotic invol vement IMPRESSION: Satisfactory prosthesis appearance. Vascular calcification the popliteal artery incidentally noted. DATA REPOSITORY: RADIATION DOSE DELIVERED:
== END 2024-12-22 15:47 | disposition home or self-care (01) ==
LOC: DIORS 15:46
PROVIDERS: PCP Internal Medicine; Visit Provider Physician Assistant
DX: T84.82XA Fibrosis due to internal orthopedic prosthetic devices, implants and grafts, initial encounter (principal); Z47.1 Aftercare following joint replacement surgery; Z96.651 Presence of right artificial knee joint
CPT/HCPCS: 99213; 73560